=== PATIENT | male | born 1970 | race Two or more races ===

== ENCOUNTER → 2018-10-02 | Outpatient (CLI) | payer OTHER ==
--- NOTE | 2018-10-02 16:46 | RAD ---
MR of the left shoulder HISTORY: Worsening chronic shoulder pain. TECHNIQUE: Routine multiplanar sequences are obtained. FINDINGS: Mild motion degradation. The acromioclavicular joint is mildly degenerative. Full-thickness rotator cuff tear of the anterior supraspinatus tendon measures about 2 cm AP diameter. Retraction measures at least 2 cm. Tendinosis through the more posterior rotator cuff. Partial subscapularis tendon tear. Mild subdeltoid bursal effusion. Trace glenohumeral joint effusion. No advanced degenerative change. Mild signal within the superior labrum likely accentuated by the motion but compatible with at least degeneration. Biceps tendon is not clearly seen. IMPRESSION: 1. Full-thickness retracted rotator cuff tear of the supraspinatus tendon. Partial subscapularis tendon tear. 2. Superior labral degeneration or degenerative tearing. 3. Nonvisualized biceps tendon compatible with tear. Electronically signed by: Gulshan Hassan MD (10/02/2018 4:43 PM) [facility]
== END | disposition home or self-care (01) ==
LOC: MRI 15:27
PROVIDERS: ATTEND Family Medicine
DX: S46.012A Strain of muscle(s) and tendon(s) of the rotator cuff of left shoulder, initial encounter (principal); G89.29 Other chronic pain; X58.XXXA Exposure to other specified factors, initial encounter; Y93.89 Activity, other specified; Y92.89 Other specified places as the place of occurrence of the external cause; Y99.8 Other external cause status
CPT/HCPCS: 73221

== ENCOUNTER → 2020-07-21 | Outpatient (CLI) | payer OTHER ==
--- NOTE | 2020-07-21 13:37 | RAD ---
Abdominal ultrasound without comparison for elevated liver enzymes. TECHNIQUE AND FINDINGS: Real-time grayscale and color Doppler evaluation of the abdominal organs is p erformed. There is diffuse fatty infiltration of the liver. Liver is also enlarged. Liver measures 18 .8 cm. No focal parenchymal abnormalities are seen. Portal vein is patent and hepatopedal. No intra o r extrahepatic biliary ductal dilatation. Common bile duct measures 2 mm. IVC is patent. Visualized p ortions of the aorta are nonaneurysmal. Spleen measures 10.2 cm is normal in appearance. Most of the pancreas is obscured by overlying bowel gas. No abnormalities of the visualized pancreatic segments. Gallbladder is fluid distended and grossly unremarkable with no shadowing stones or sludge and no son ographic Rudolph sign. The right kidney measures 13.0 x 5.1 x 5.6 cm and the left measures 12.8 x 5.5 x 5.8 cm. No hydronephrosis or significant focal parenchymal abnormality. IMPRESSION: 1. Hepatomegaly and hepatic steatosis. Electronically signed by: Cory Collins MD (07/21/2020 1:35 PM) [id number]
== END ==
LOC: US 08:04
PROVIDERS: ATTEND Family Medicine
DX: K76.0 Fatty (change of) liver, not elsewhere classified (principal); R16.0 Hepatomegaly, not elsewhere classified
CPT/HCPCS: 76700